=== PATIENT | female | born 1935 | race Caucasian/White ===

== ENCOUNTER 2017-04-25 09:25 | Inpatient (IN) | payer MEDICARE, OTHER ==
[~2017-04-25] VITALS: Ht 167.6 cm; Wt 55.0 kg
[~2017-04-25 09:25] MED LIST: AMOX-419 PO; ASPI-1264 PO; ATOR20TA66 PO; CARV3.1289 PO; DIGO125T97 PO; DIO160T PO; FLUT16SP2 BOTHNARES; FLUT16SP26 NS; FURO40TA4 PO; Hydrocodone Bit/Acetaminophen PO; INSU100I25 SQ; INSU100V11 SQ; LACTC PO; LEVO250T2 PO; LEVO25TA7 PO; LEVO500T89 PO; LEVO50TA8 PO; LORA10TA7 PO; LOSA100T3 PO; METR250T4 PO; ONDA4TAB12 PO; PAT0.1OS EACHEYE; ROSU10TA PO; SPIIN IH; SPIIN INH; TRAZ-143 PO; TRAZ-146 PO; VICODIN 5/500 PO; XAL0.005OS EACHEYE; ZOL50T PO
[2017-04-25] MEDS ORDERED: pantoprazole IV 80 MG in normal saline 100ml IV soln 100 ML IV ONE ×2 (10:20→10:30)
[2017-04-25] MEDS ORDERED: normal saline 1000ML IV soln IVB ONE (10:20)
[2017-04-25] MEDS ORDERED: pantoprazole IV 40 MG in normal saline 100ml IV soln 100 ML IV ONE (10:25)
[2017-04-25 11:09] LABS: BASOPHILS % (AUTO) 0.1 % (0-1); EOSINOPHILS # (AUTO) 0.4 X10'3 (0-0.9); HEMATOCRIT 32.5 % (35.0-45.0); HEMOGLOBIN 10.9 g/dl (12.0-16.0); LYMPHOCYTES # (AUTO) 0.4 X10'3 (1.1-4.8); LYMPHOCYTES % (AUTO) 2.2 % (21-51); MEAN CORPUSCULAR HGB CONC 33.5 % (33.0-36.5); MEAN CORPUSCULAR VOLUME 89.5 FL (78-98); MEAN PLATELET VOLUME 7.8 FL (7.4-10.4); MONOCYTES # (AUTO) 0.7 X10'3 (0-0.9); NEUTROPHILS # (AUTO) 16.6 X10'3 (1.8-7.7); NEUTROPHILS % (AUTO) 91.7 % (42-75); PLATELET COUNT 391 X10'3 (140-440); RED BLOOD COUNT 3.63 X10'6 (4.20-5.60); RED CELL DISTRIBUTION WIDTH 13.3 % (11.5-14.5)
[2017-04-25 11:17] LABS: PROTHROMBIN TIME 10.7 SECONDS (9.0-12.0)
[2017-04-25 11:24] LABS: ALANINE AMINOTRANSFERASE 18 U/L (12-78); ALBUMIN 2.6 G/DL (3.4-5.0); ALBUMIN/GLOBULIN RATIO 0.5 (1.1-1.5); ALKALINE PHOSPHATASE 89 IU/L (46-116); ANION GAP 4 (8-16); ASPARTATE AMINO TRANSFERASE 20 U/L (10-37); BILIRUBIN,TOTAL 0.3 MG/DL (0.1-1.0); BLOOD UREA NITROGEN 20 MG/DL (7-18); BUN/CREATININE RATIO 16.1 (6.6-38.0); CALCIUM 9.4 MG/DL (8.5-10.1); CHLORIDE 95 MMOL/L (99-107); CREATININE 1.24 MG/DL (0.40-0.90); GLUCOSE 144 MG/DL (70-104); POTASSIUM 4.6 MMOL/L (3.5-5.1); SODIUM 134 MMOL/L (135-145); TOTAL CARBON DIOXIDE 35.5 MMOL/L (24-32); TOTAL PROTEIN 7.5 G/DL (6.4-8.2); eGFR 41 ML/MIN
[2017-04-25 11:34] LABS: TOTAL CELLS COUNTED 100
[2017-04-25 11:35] LABS: PLATELET ESTIMATE NORMAL
[2017-04-25] MEDS ORDERED: azithromycin/NS 500mg/250ml 250 ML IV ONE (11:35)
[2017-04-25] MEDS ORDERED: CefTRIAXone 2gm/NS 100ml IVPB 100 ML IV ONE (11:35)
[2017-04-25 11:36] LABS: ANISOCYTOSIS FEW; TOXIC GRANULATION 2+; TOXIC VACUOLATION FEW
[2017-04-25] MEDS ORDERED: potassium Cl 20 mEq SR tablet PO PRN ×2 (12:20)
[2017-04-25] MEDS ORDERED: morphine sulfate 8 MG/ML SYRINGE IV PRN (12:20)
[2017-04-25] MEDS ORDERED: mag hydrox/Alum hydrox/simeth 30ml oral suspension PO PRN (12:20)
[2017-04-25] MEDS ORDERED: acetaminophen 325mg tablet PO PRN (12:20)
[2017-04-25] MEDS ORDERED: HYDROcodone/acetaminophen 5mg/325mg tablet PO PRN (12:20)
[2017-04-25] MEDS ORDERED: potassium Cl 40MEQ/NS 500ml 500 ML IV PRN ×2 (12:20)
[2017-04-25] MEDS ORDERED: bisacodyl 10mg suppository rectal RC PRN (12:20)
[2017-04-25] MEDS ORDERED: insulin Lispro (HumaLOG) vial - multi-dose SQ SCH (12:25)
[2017-04-25] MEDS ORDERED: glucagon, human recombinant 1mg kit SUBCUT PRN (12:25)
[2017-04-25] MEDS ORDERED: dextrose ORAL solution 15 GM/59 ML bottle PO PRN ×2 (12:25)
[2017-04-25] MEDS ORDERED: dextrose 50%-water 50ml dispensing syringe IV PRN ×2 (12:25)
[2017-04-25] MEDS ORDERED: MESSAGE TO PHARMACY PO ONE (12:25)
[2017-04-25 12:28] LABS: OCCULT BLOOD STOOL POSITIVE (Neg)
[2017-04-25] MEDS ORDERED: NUT.237L33 PO (12:28)
[2017-04-25] MEDS ORDERED: ROSU10TA PO (12:28)
[2017-04-25] MEDS ORDERED: ALBU8HFA PO (12:28)
[2017-04-25] MEDS ORDERED: ADV50250 IH (12:28)
[2017-04-25] MEDS ORDERED: LANTUS SQ (12:28)
[2017-04-25] MEDS ORDERED: LOSA50TA3 PO (12:28)
[2017-04-25] MEDS ORDERED: CYA500T PO (12:28)
[2017-04-25] MEDS ORDERED: OMEP40CA37 PO (12:28)
[2017-04-25] MEDS ORDERED: CHOL200026 PO (12:28)
[2017-04-25 12:50] LABS: HEMOGLOBIN A1C 5.9 % (4.5-6.2)
[2017-04-25] MEDS: ipratropium/albuterol 3ml nebule NEB SCH ×3 (13:30→23:48)
[2017-04-25] MEDS: ondansetron/PF 4mg/2ml inj IV PRN (13:44)
[2017-04-25] MEDS: normal saline 1000ml 1,000 ML IV SCH (14:21)
[2017-04-25] MEDS: levoFLOXACIN-Levaquin 750MG/D5 150 ML IV SCH (14:21)
[2017-04-25 14:52] LABS: CLARITY,URINE Clear (Clear); COLOR,URINE Yellow (Yellow); GLUCOSE, URINE Negative (Neg); KETONES,URINE Negative (Neg); LEUKOCYTE ESTERASE ,URINE Trace (Neg); NITRITES, URINE Negative (Neg); OCCULT BLOOD,URINE Negative (Neg); PH,URINE 6.5 (4.8-8.0); PROTEIN,URINE Negative (Neg); UROBILINOGEN,URINE 0.2 E.U/dL (0.2-1.0)
[2017-04-25 14:53] LABS: UA COLLECTION TYPE VOIDED
[2017-04-25 15:16] LABS: BACTERIA,URINE NONE SEEN /HPF (Neg); RBC,URINE NONE SEEN /HPF (0-2); SQUAMOUS EPITHELIAL CELL,UR FEW /LPF (FEW); WBC,URINE 0-4 /HPF (0-4)
[2017-04-25 15:42] VITALS: BP 123/69
[2017-04-25] MEDS: levoTHYROXINE 25mcg tablet PO SCH (16:02)
[2017-04-25] MEDS: clindamycin 600mg/D5W 50ml 50 ML IV SCH ×2 (16:05→20:43)
[2017-04-25 17:32] LABS: BASOPHILS % (AUTO) 0 % (0-1); EOSINOPHILS # (AUTO) 0.2 X10'3 (0-0.9); EOSINOPHILS % (AUTO) 1.5 % (0-6); HEMATOCRIT 31.6 % (35.0-45.0); HEMOGLOBIN 10.5 g/dl (12.0-16.0); LYMPHOCYTES # (AUTO) 0.4 X10'3 (1.1-4.8); LYMPHOCYTES % (AUTO) 2.9 % (21-51); MEAN CORPUSCULAR HEMOGLOBIN 29.7 PG (27.0-31.0); MEAN CORPUSCULAR HGB CONC 33.2 % (33.0-36.5); MEAN CORPUSCULAR VOLUME 89.7 FL (78-98); MEAN PLATELET VOLUME 7.6 FL (7.4-10.4); MONOCYTES # (AUTO) 0.9 X10'3 (0-0.9); MONOCYTES % (AUTO) 5.9 % (2-12); NEUTROPHILS # (AUTO) 13.3 X10'3 (1.8-7.7); NEUTROPHILS % (AUTO) 89.7 % (42-75); PLATELET COUNT 327 X10'3 (140-440); RED BLOOD COUNT 3.52 X10'6 (4.20-5.60); RED CELL DISTRIBUTION WIDTH 13.5 % (11.5-14.5); WHITE BLOOD COUNT 14.9 X10'3 (4.5-11.0)
[2017-04-25] MEDS: benzonatate 100mg capsule PO SCH ×2 (17:43→23:42)
[2017-04-25 20:00] VITALS: BP 130/61
[2017-04-25] MEDS: docusate sod 100mg capsule PO SCH (20:00)
[2017-04-25] MEDS: carVEDilol 3.125mg tablet PO SCH (20:41)
[2017-04-25] MEDS ORDERED: insulin glargine (Lantus) pen - multi-dose SQ SCH (21:00)
[2017-04-25] MEDS ORDERED: diatr meglu/diatrizoate 30ml oral sol.-(3 dose) bottle PO SCH (21:00)
[2017-04-25] MEDS: Insulin Detemir pen SQ SCH (21:00)
[2017-04-25 23:48] LABS: BASOPHILS % (AUTO) 0 % (0-1); EOSINOPHILS % (AUTO) 0.2 % (0-6); HEMATOCRIT 29.3 % (35.0-45.0); HEMOGLOBIN 9.7 g/dl (12.0-16.0); LYMPHOCYTES # (AUTO) 0.5 X10'3 (1.1-4.8); LYMPHOCYTES % (AUTO) 2.9 % (21-51); MEAN CORPUSCULAR HEMOGLOBIN 29.8 PG (27.0-31.0); MEAN CORPUSCULAR HGB CONC 33.2 % (33.0-36.5); MEAN CORPUSCULAR VOLUME 89.7 FL (78-98); MEAN PLATELET VOLUME 8.1 FL (7.4-10.4); MONOCYTES # (AUTO) 1.2 X10'3 (0-0.9); MONOCYTES % (AUTO) 7.8 % (2-12); NEUTROPHILS # (AUTO) 14.3 X10'3 (1.8-7.7); NEUTROPHILS % (AUTO) 89.1 % (42-75); PLATELET COUNT 316 X10'3 (140-440); RED BLOOD COUNT 3.27 X10'6 (4.20-5.60); RED CELL DISTRIBUTION WIDTH 13.1 % (11.5-14.5)
[2017-04-26] VITALS: BP 128/63
[2017-04-26] MEDS: ondansetron/PF 4mg/2ml inj IV PRN (00:40)
[2017-04-26] MEDS: normal saline 1000ml 1,000 ML IV SCH ×3 (00:48→21:31)
[2017-04-26] MEDS: clindamycin 600mg/D5W 50ml 50 ML IV SCH ×4 (02:14→20:13)
[2017-04-26] MEDS: ipratropium/albuterol 3ml nebule NEB SCH ×6 (03:34→23:32)
[2017-04-26] MEDS: levoTHYROXINE 25mcg tablet PO SCH (07:03)
[2017-04-26] MEDS: diatr meglu/diatrizoate 30ml oral sol.-(3 dose) bottle PO SCH ×2 (07:04→09:37)
[2017-04-26] MEDS: pantoprazole 40mg Tablet.DR PO SCH (07:04)
[2017-04-26 07:12] VITALS: BP 126/64
[2017-04-26] MEDS: vitamin D (cholecalciferol) 1,000 unit tablet PO SCH (07:21)
[2017-04-26] MEDS: losartan 50mg tablet PO SCH (07:21)
[2017-04-26] MEDS: carVEDilol 3.125mg tablet PO SCH ×2 (07:21→20:13)
[2017-04-26] MEDS: cyanocobalamin 500mcg tablet PO SCH (07:21)
[2017-04-26 07:34] LABS: BASOPHILS % (AUTO) 0 % (0-1); EOSINOPHILS % (AUTO) 0.2 % (0-6); HEMATOCRIT 31.6 % (35.0-45.0); HEMOGLOBIN 10.5 g/dl (12.0-16.0); LYMPHOCYTES # (AUTO) 0.5 X10'3 (1.1-4.8); LYMPHOCYTES % (AUTO) 3.4 % (21-51); MEAN CORPUSCULAR HEMOGLOBIN 29.7 PG (27.0-31.0); MEAN CORPUSCULAR HGB CONC 33.3 % (33.0-36.5); MEAN CORPUSCULAR VOLUME 89.2 FL (78-98); MEAN PLATELET VOLUME 8.1 FL (7.4-10.4); MONOCYTES # (AUTO) 1.2 X10'3 (0-0.9); MONOCYTES % (AUTO) 7.5 % (2-12); NEUTROPHILS # (AUTO) 14.3 X10'3 (1.8-7.7); NEUTROPHILS % (AUTO) 88.9 % (42-75); PLATELET COUNT 414 X10'3 (140-440); RED BLOOD COUNT 3.54 X10'6 (4.20-5.60); RED CELL DISTRIBUTION WIDTH 13.4 % (11.5-14.5); WHITE BLOOD COUNT 16.1 X10'3 (4.5-11.0)
[2017-04-26] MEDS: docusate sod 100mg capsule PO SCH ×2 (07:45→20:00)
[2017-04-26] MEDS: atorvastatin 20mg tablet PO SCH (07:45)
[2017-04-26] MEDS: K and/or MAG REPLACEMENT MC SCH (08:00)
[2017-04-26 08:10] LABS: ALANINE AMINOTRANSFERASE 19 U/L (12-78); ALBUMIN 2.4 G/DL (3.4-5.0); ALBUMIN/GLOBULIN RATIO 0.5 (1.1-1.5); ALKALINE PHOSPHATASE 96 IU/L (46-116); ANION GAP 6 (8-16); ASPARTATE AMINO TRANSFERASE 20 U/L (10-37); BILIRUBIN,TOTAL 0.7 MG/DL (0.1-1.0); BLOOD UREA NITROGEN 12 MG/DL (7-18); BUN/CREATININE RATIO 10.8 (6.6-38.0); CALCIUM 9.3 MG/DL (8.5-10.1); CHLORIDE 100 MMOL/L (99-107); CREATININE 1.11 MG/DL (0.40-0.90); GLUCOSE 133 MG/DL (70-104); MAGNESIUM 1.4 MG/DL (1.5-2.4); POTASSIUM 4.4 MMOL/L (3.5-5.1); SODIUM 137 MMOL/L (135-145); TOTAL CARBON DIOXIDE 31.5 MMOL/L (24-32); TOTAL PROTEIN 6.9 G/DL (6.4-8.2); eGFR 47 ML/MIN
[2017-04-26] MEDS ORDERED: LORazepam 2 mg/ml vial IV ONE ×2 (08:10→09:40)
[2017-04-26] MEDS: levoFLOXACIN-Levaquin 750MG/D5 150 ML IV SCH (10:14)
[2017-04-26] MEDS: benzonatate 100mg capsule PO SCH ×3 (10:14→23:35)
[2017-04-26 12:00] VITALS: BP 100/50
[2017-04-26] MEDS: lactobacillus rhamnosus 10,000 MMU CELLS/CAPSULE PO SCH (17:28)
[2017-04-26 18:00] VITALS: BP 128/69
[2017-04-26] MEDS: NUT.TX.GLUC.INTOLER,LAC-FR,REG (BOOST GLUCOSE CONTROL) 237 ML PO SCH (18:00)
[2017-04-26] MEDS: Insulin Detemir pen SQ SCH (21:00)
[2017-04-27] VITALS: BP 134/69
[2017-04-27] MEDS: clindamycin 600mg/D5W 50ml 50 ML IV SCH ×3 (01:56→13:34)
[2017-04-27] MEDS: ipratropium/albuterol 3ml nebule NEB SCH ×2 (03:33→10:55)
[2017-04-27 06:11] LABS: BASOPHILS # (AUTO) 0.1 X10'3 (0-0.2); BASOPHILS % (AUTO) 0.5 % (0-1); EOSINOPHILS # (AUTO) 0.3 X10'3 (0-0.9); EOSINOPHILS % (AUTO) 2.7 % (0-6); HEMATOCRIT 28.9 % (35.0-45.0); HEMOGLOBIN 9.6 g/dl (12.0-16.0); LYMPHOCYTES # (AUTO) 0.6 X10'3 (1.1-4.8); LYMPHOCYTES % (AUTO) 5.3 % (21-51); MEAN CORPUSCULAR HEMOGLOBIN 29.9 PG (27.0-31.0); MEAN CORPUSCULAR HGB CONC 33.5 % (33.0-36.5); MEAN CORPUSCULAR VOLUME 89.3 FL (78-98); MEAN PLATELET VOLUME 7.4 FL (7.4-10.4); MONOCYTES # (AUTO) 0.9 X10'3 (0-0.9); MONOCYTES % (AUTO) 8.3 % (2-12); NEUTROPHILS # (AUTO) 9.2 X10'3 (1.8-7.7); NEUTROPHILS % (AUTO) 83.2 % (42-75); PLATELET COUNT 333 X10'3 (140-440); RED BLOOD COUNT 3.23 X10'6 (4.20-5.60); RED CELL DISTRIBUTION WIDTH 13.5 % (11.5-14.5)
[2017-04-27 06:30] VITALS: BP 137/64
[2017-04-27 06:32] LABS: ALANINE AMINOTRANSFERASE 17 U/L (12-78); ALBUMIN 2.1 G/DL (3.4-5.0); ALBUMIN/GLOBULIN RATIO 0.5 (1.1-1.5); ALKALINE PHOSPHATASE 75 IU/L (46-116); ANION GAP 4 (8-16); ASPARTATE AMINO TRANSFERASE 23 U/L (10-37); BILIRUBIN,TOTAL 0.2 MG/DL (0.1-1.0); BLOOD UREA NITROGEN 14 MG/DL (7-18); BUN/CREATININE RATIO 13.9 (6.6-38.0); CALCIUM 8.8 MG/DL (8.5-10.1); CHLORIDE 100 MMOL/L (99-107); CREATININE 1.01 MG/DL (0.40-0.90); GLUCOSE 121 MG/DL (70-104); MAGNESIUM 1.4 MG/DL (1.5-2.4); POTASSIUM 4.5 MMOL/L (3.5-5.1); SODIUM 135 MMOL/L (135-145); TOTAL CARBON DIOXIDE 31.4 MMOL/L (24-32); TOTAL PROTEIN 6.1 G/DL (6.4-8.2); eGFR 52 ML/MIN
[2017-04-27] MEDS: lactobacillus rhamnosus 10,000 MMU CELLS/CAPSULE PO SCH (07:31)
[2017-04-27] MEDS: losartan 50mg tablet PO SCH (07:31)
[2017-04-27] MEDS: levoTHYROXINE 25mcg tablet PO SCH (07:31)
[2017-04-27] MEDS: carVEDilol 3.125mg tablet PO SCH (07:32)
[2017-04-27] MEDS: pantoprazole 40mg Tablet.DR PO SCH (07:32)
[2017-04-27] MEDS: docusate sod 100mg capsule PO SCH (07:32)
[2017-04-27] MEDS: vitamin D (cholecalciferol) 1,000 unit tablet PO SCH (07:32)
[2017-04-27] MEDS: atorvastatin 20mg tablet PO SCH (07:32)
[2017-04-27] MEDS: cyanocobalamin 500mcg tablet PO SCH (07:32)
[2017-04-27] MEDS: NUT.TX.GLUC.INTOLER,LAC-FR,REG (BOOST GLUCOSE CONTROL) 237 ML PO SCH ×2 (07:38→13:34)
[2017-04-27] MEDS: K and/or MAG REPLACEMENT MC SCH (07:38)
[2017-04-27] MEDS ORDERED: magnesium Cl slow-release 64mg tablet PO PRN (07:40)
[2017-04-27] MEDS ORDERED: magnesium 2GM in 50ml NS 50 ML IV PRN (07:40)
[2017-04-27] MEDS ORDERED: magnesium 4gm in 100ml NS 100 ML IV PRN (07:40)
[2017-04-27] MEDS: benzonatate 100mg capsule PO SCH (07:43)
[2017-04-27] MEDS: levoFLOXACIN-Levaquin 750MG/D5 150 ML IV SCH (07:43)
[2017-04-27] MEDS: normal saline 1000ml 1,000 ML IV SCH (09:41)
[2017-04-27 12:14] VITALS: BP 138/74
[2017-04-27] MEDS: ondansetron/PF 4mg/2ml inj IV PRN (13:34)
[2017-04-27] MEDS ORDERED: LEVO750T46 PO (14:50)
[2017-04-29] MEDS ORDERED: levoFLOXACIN 750MG TABLET PO SCH (08:00)
== END 2017-04-27 15:20 | disposition home or self-care (01) | DRG 871 ==
LOC: ER 09:25 → ED HOLD 12:18 → MED 3N 15:32
PROVIDERS: ADMIT Internal Medicine; ATTEND Internal Medicine
DX: A41.9 Sepsis, unspecified organism (principal); J18.9 Pneumonia, unspecified organism; J96.21 Acute and chronic respiratory failure with hypoxia; K56.699 Other intestinal obstruction unspecified as to partial versus complete obstruction; K92.2 Gastrointestinal hemorrhage, unspecified; J44.0 Chronic obstructive pulmonary disease with (acute) lower respiratory infection; Z99.81 Dependence on supplemental oxygen; D64.9 Anemia, unspecified; I51.81 Takotsubo syndrome; E11.9 Type 2 diabetes mellitus without complications; N28.9 Disorder of kidney and ureter, unspecified; E86.0 Dehydration; E03.9 Hypothyroidism, unspecified; F40.240 Claustrophobia; K59.09 Other constipation; Z90.49 Acquired absence of other specified parts of digestive tract; Z88.5 Allergy status to narcotic agent; Z88.8 Allergy status to other drugs, medicaments and biological substances; Z87.891 Personal history of nicotine dependence
CPT/HCPCS: 36415; 71010; 74020; 74176; 80053; 81001; 82272; 82948; 83036; 83605; 83735; 85025; 85610; 86885; 86900; 86901; 87040; 87070; 87088; 93005; 94640; 94760; 97116; 97162; 99285; C9113; J0456; J0696; J1956; J2060; J2405; J3490; J7030; Q9963

== ENCOUNTER 2017-08-14 13:21 | Outpatient (CLI) | payer MEDICARE, OTHER ==
[~2017-08-14 13:21] MED LIST changes: +ADV50250 IH; +ALBU8HFA PO; -AMOX-419 PO; -ASPI-1264 PO; -ATOR20TA66 PO; +CHOL200026 PO; +CYA500T PO; -DIGO125T97 PO; -DIO160T PO; -FLUT16SP2 BOTHNARES; -FLUT16SP26 NS; -FURO40TA4 PO; -Hydrocodone Bit/Acetaminophen PO; -INSU100I25 SQ; -INSU100V11 SQ; -LACTC PO; +LANTUS SQ; -LEVO250T2 PO; -LEVO25TA7 PO; -LEVO500T89 PO; +LEVO750T46 PO; -LORA10TA7 PO; -LOSA100T3 PO; +LOSA50TA3 PO; -METR250T4 PO; +NUT.237L33 PO; +OMEP40CA37 PO; -PAT0.1OS EACHEYE; -SPIIN IH; -TRAZ-143 PO; -TRAZ-146 PO; -VICODIN 5/500 PO; -XAL0.005OS EACHEYE; -ZOL50T PO
[2017-08-14] MEDS ORDERED: ADV50500 INH (15:07)
[2017-08-14] MEDS ORDERED: ALBU0.63 NEB (15:07)
[2017-08-14] MEDS ORDERED: XAL0.005OS OP (15:08)
== END 2017-08-14 23:59 | disposition home or self-care (01) ==
LOC: PRE-OP 13:21 → EDSTATUS 13:30 → PRE-OP 23:59 → EDSTATUS 08-15 13:30
PROVIDERS: ATTEND Surgery
DX: Z01.818 Encounter for other preprocedural examination (principal); K63.89 Other specified diseases of intestine; J44.9 Chronic obstructive pulmonary disease, unspecified; E11.9 Type 2 diabetes mellitus without complications; E55.9 Vitamin D deficiency, unspecified; I25.10 Atherosclerotic heart disease of native coronary artery without angina pectoris; E78.5 Hyperlipidemia, unspecified; E03.9 Hypothyroidism, unspecified; I13.0 Hypertensive heart and chronic kidney disease with heart failure and stage 1 through stage 4 chronic kidney disease, or unspecified chronic kidney disease; N18.1 Chronic kidney disease, stage 1
CPT/HCPCS: 71046

== ENCOUNTER 2017-08-21 09:03 | Outpatient (CLI) | payer MEDICARE, OTHER ==
[2017-08-21] VITALS (8 sets, daily range): BP systolic 134–142; BP diastolic 52–63
[~2017-08-21] VITALS: Ht 167.6 cm; Wt 68.0 kg
[~2017-08-21 09:03] MED LIST changes: -ADV50250 IH; +ADV50500 INH; +ALBU0.63 NEB; -ALBU8HFA PO; -CHOL200026 PO; -LEVO750T46 PO; -LOSA50TA3 PO; -NUT.237L33 PO; -OMEP40CA37 PO; -ONDA4TAB12 PO; -SPIIN INH; +XAL0.005OS OP
[2017-08-21] MEDS ORDERED: regadenoson 0.4mg/5ml syringe IV ONE ×3 (10:10→10:38)
[2017-08-21] MEDS ORDERED: normal saline 500ml IV soln 500 ML IV ONE (10:30)
[2017-08-21] MEDS ORDERED: nitroGLYCERIN 0.4mg SUBLingual tab SL PRN (10:30)
[2017-08-21] MEDS ORDERED: aminophylline 250mg/10ml inj. IV PRN (10:30)
[2017-08-21] MEDS ORDERED: aminophylline inj. 10 ML IV ONE (10:38)
== END 2017-08-21 23:59 | disposition home or self-care (01) ==
LOC: RAD 09:03
PROVIDERS: ATTEND Internal Medicine Cardiovascular Disease
DX: I11.0 Hypertensive heart disease with heart failure (principal); I50.9 Heart failure, unspecified; I25.10 Atherosclerotic heart disease of native coronary artery without angina pectoris; J45.909 Unspecified asthma, uncomplicated; E11.9 Type 2 diabetes mellitus without complications; Z87.891 Personal history of nicotine dependence; Z88.1 Allergy status to other antibiotic agents; Z88.8 Allergy status to other drugs, medicaments and biological substances
CPT/HCPCS: 78452; 93017; A9500; J0280; J7030

== ENCOUNTER 2017-09-26 13:53 | Inpatient (IN) | payer MEDICARE, OTHER ==
[~2017-09-26] VITALS: Ht 167.6 cm; Wt 47.3 kg
[~2017-09-26 13:53] MED LIST changes: +ALBU18HF2; +CHOL4PAC4; +LOSA100T28; +NITR0.4T48; +OMEP-50; +SERT100T10; +TRAZ150T78 PO
[2017-09-26] MEDS ORDERED: ipratropium/albuterol 3ml nebule NEB ONE (14:00)
[2017-09-26] MEDS ORDERED: methylPREDNISolone sod succ 125mg/2ml vial IV ONE (14:00)
[2017-09-26] MEDS ORDERED: albuterol 2.5 MG/3 ML nebule NEB ONE ×2 (14:00→16:35)
[2017-09-26 14:35] LABS: BASOPHILS % (AUTO) 0 % (0-1); EOSINOPHILS # (AUTO) 0.1 X10'3 (0-0.9); EOSINOPHILS % (AUTO) 0.3 % (0-6); HEMATOCRIT 35.2 % (35.0-45.0); HEMOGLOBIN 11.8 g/dl (12.0-16.0); LYMPHOCYTES # (AUTO) 0.7 X10'3 (1.1-4.8); LYMPHOCYTES % (AUTO) 2.6 % (21-51); MEAN CORPUSCULAR HEMOGLOBIN 28.9 PG (27.0-31.0); MEAN CORPUSCULAR HGB CONC 33.4 % (33.0-36.5); MEAN CORPUSCULAR VOLUME 86.6 FL (78-98); MEAN PLATELET VOLUME 8.9 FL (7.4-10.4); MONOCYTES # (AUTO) 0.9 X10'3 (0-0.9); MONOCYTES % (AUTO) 3.6 % (2-12); NEUTROPHILS # (AUTO) 23.9 X10'3 (1.8-7.7); NEUTROPHILS % (AUTO) 93.5 % (42-75); PLATELET COUNT 114 X10'3 (140-440); RED BLOOD COUNT 4.07 X10'6 (4.20-5.60)
[2017-09-26 14:39] LABS: INR 1.1 INR; PARTIAL THROMBOPLASTIN TIME 30 SECONDS (22-32); PROTHROMBIN TIME 11.4 SECONDS (9.0-12.0); WHITE BLOOD COUNT 25.6 X10'3 (4.5-11.0)
[2017-09-26 14:51] LABS: ALANINE AMINOTRANSFERASE 16 U/L (12-78); ALBUMIN 2.1 G/DL (3.4-5.0); ALBUMIN/GLOBULIN RATIO 0.3 (1.1-1.5); ALKALINE PHOSPHATASE 148 IU/L (46-116); ANION GAP 10 (8-16); ASPARTATE AMINO TRANSFERASE 26 U/L (10-37); BILIRUBIN,TOTAL 0.3 MG/DL (0.1-1.0); BLOOD UREA NITROGEN 56 MG/DL (7-18); BUN/CREATININE RATIO 20.4 (6.6-38.0); CALCIUM 9.1 MG/DL (8.5-10.1); CHLORIDE 98 MMOL/L (99-107); CREATININE 2.74 MG/DL (0.40-0.90); GLUCOSE 134 MG/DL (70-104); SODIUM 134 MMOL/L (135-145); TOTAL CARBON DIOXIDE 25.8 MMOL/L (24-32); TOTAL PROTEIN 8.6 G/DL (6.4-8.2); eGFR 17 ML/MIN
[2017-09-26 14:52] LABS: TOTAL CELLS COUNTED 100
[2017-09-26 14:53] LABS: ANISOCYTOSIS 1+; PLATELET ESTIMATE DECREASED; POTASSIUM 6.9 MMOL/L (3.5-5.1)
[2017-09-26] MEDS ORDERED: calcium chloride 100 MG/1 ML inj IV ONE ×3 (14:55→18:10)
[2017-09-26] MEDS ORDERED: sodium polystyrene sulfonate 15gm/60ml oral suspension PO ONE ×2 (14:55→16:35)
[2017-09-26] MEDS ORDERED: insulin regular, human 10 units/0.1 ml syringe IV ONE ×2 (14:55→16:35)
[2017-09-26] MEDS ORDERED: dextrose 50%-water 50ml dispensing syringe IV ONE ×2 (14:55→16:35)
[2017-09-26] MEDS: normal saline 1000ML IV soln IV ONE ×2 (15:02→15:18)
[2017-09-26] MEDS ORDERED: HEPA500015 SQ (15:10)
[2017-09-26] MEDS ORDERED: VITA1CAP PO (15:10)
[2017-09-26] MEDS ORDERED: PROC5TAB56 PO (15:10)
[2017-09-26] MEDS ORDERED: ALBU0.63 IH (15:10)
[2017-09-26] MEDS ORDERED: FLUT1BLS3 INH (15:10)
[2017-09-26] MEDS ORDERED: DOCU-148 PO (15:10)
[2017-09-26] MEDS ORDERED: CefTRIAXone/D5W-Rocephin 1gm 50 ML IV ONE (15:30)
[2017-09-26] MEDS ORDERED: albuterol 2.5 MG/3 ML nebule NEB PRN (16:10)
[2017-09-26] MEDS ORDERED: morphine 4 MG/ML inj SYRINge IV PRN (16:25)
[2017-09-26] MEDS ORDERED: magnesium hydroxide 30ml (MOM) UD suspension PO PRN (16:25)
[2017-09-26] MEDS ORDERED: metoclopramide 5 mg/ml inj IV PRN (16:25)
[2017-09-26] MEDS ORDERED: HYDROmorphone inj. 0.5 MG/0.5 ML DISP.SYRIN IV PRN ×2 (16:25)
[2017-09-26] MEDS ORDERED: diphenhydrAMINE 50 mg/ml inj IV PRN (16:25)
[2017-09-26] MEDS ORDERED: diphenhydrAMINE 25mg capsule PO PRN (16:25)
[2017-09-26] MEDS ORDERED: mag hydrox/Alum hydrox/simeth 30ml oral suspension PO PRN (16:25)
[2017-09-26] MEDS ORDERED: bisacodyl 10mg suppository rectal RC PRN (16:25)
[2017-09-26] MEDS ORDERED: dextrose 50%-water 50ml dispensing syringe IV PRN ×2 (16:30)
[2017-09-26] MEDS ORDERED: glucagon, human recombinant 1mg kit SUBCUT PRN (16:30)
[2017-09-26] MEDS ORDERED: dextrose ORAL solution 15 GM/59 ML bottle PO PRN ×2 (16:30)
[2017-09-26] MEDS ORDERED: MESSAGE TO PHARMACY PO ONE (16:30)
[2017-09-26] MEDS ORDERED: sodium bicarbonate (8.4%) 1 mEq/ml syringe IV ONE (16:35)
[2017-09-26 16:36] LABS: ABG BASE EXCESS -6.3 mmol/L (-2.0-3.0); ABG HCO3 20.4 mmol/L (22.0-26.0); ABG OXYGEN SATURATION 92.9 % (95-98); ABG PCO2 (T) 45.5 mmHg (32.0-45.0); ABG PO2 (T) 72.3 mmHg (83-108); ALLEN'S TEST Positive; FCOHb 0.6 % (0.5-1.5); FLOW 36 L/min; FMetHb 0.3 % (0.3-1.12); FO2Hb 92.1 % (94-100); TOTAL HEMOGLOBIN 11.8 G/dl (12.0-16.0)
[2017-09-26] MEDS: proCHLORperazine 5mg tablet PO SCH (17:00)
[2017-09-26] MEDS ORDERED: MULT-685 PO (17:07)
[2017-09-26] MEDS ORDERED: POLY17PO10 PO (17:07)
[2017-09-26] MEDS ORDERED: CHOL4PAC19 PO (17:07)
[2017-09-26] MEDS ORDERED: IBUP200C74 PO (17:07)
[2017-09-26] MEDS ORDERED: [UNRECOGNIZED DRUG - OTHER] PO (17:07)
[2017-09-26] MEDS ORDERED: ATR0.5NEB NEB (17:07)
[2017-09-26] MEDS ORDERED: FURO-150 PO (17:07)
[2017-09-26] MEDS ORDERED: TRAM50TA2 PO (17:07)
[2017-09-26] MEDS ORDERED: PRAV80TA3 PO (17:07)
[2017-09-26] MEDS ORDERED: INSU100I8 SQ (17:07)
[2017-09-26] MEDS ORDERED: NYST1000 PO (17:07)
[2017-09-26] MEDS ORDERED: ONDA8TAB9 PO (17:07)
[2017-09-26 17:17] LABS: C-REACTIVE PROTEIN 7.88 MG/DL (0.0-0.5); CREATINE KINASE 17 U/L (26-192); LIPASE 293 U/L (73-393); MAGNESIUM 2.3 MG/DL (1.5-2.4); PHOSPHORUS 5.3 MG/DL (2.3-4.5)
[2017-09-26 17:54] LABS: ALANINE AMINOTRANSFERASE 15 U/L (12-78); ALBUMIN 2.1 G/DL (3.4-5.0); ALBUMIN/GLOBULIN RATIO 0.3 (1.1-1.5); ALKALINE PHOSPHATASE 148 IU/L (46-116); ANION GAP 10 (8-16); ASPARTATE AMINO TRANSFERASE 23 U/L (10-37); BILIRUBIN,TOTAL 0.2 MG/DL (0.1-1.0); BLOOD UREA NITROGEN 54 MG/DL (7-18); BUN/CREATININE RATIO 19.4 (6.6-38.0); CALCIUM 10.3 MG/DL (8.5-10.1); CHLORIDE 98 MMOL/L (99-107); CREATININE 2.78 MG/DL (0.40-0.90); GLUCOSE 130 MG/DL (70-104); POTASSIUM 5.8 MMOL/L (3.5-5.1); SODIUM 132 MMOL/L (135-145); TOTAL CARBON DIOXIDE 24.1 MMOL/L (24-32); TOTAL PROTEIN 8.5 G/DL (6.4-8.2); eGFR 16 ML/MIN
[2017-09-26] MEDS: normal saline 1000ml 1,000 ML IV SCH (18:28)
[2017-09-26] MEDS: furosemide 40mg/4ml inj IV SCH (20:55)
[2017-09-26] MEDS: carVEDilol 3.125mg tablet PO SCH (21:00)
[2017-09-26] MEDS: docusate sod 100mg capsule PO SCH (21:00)
[2017-09-26] MEDS ORDERED: temazepam 15mg capsule PO PRN (21:00)
[2017-09-26] MEDS: methylPREDNISolone sod succ 125mg/2ml vial IV SCH (21:01)
[2017-09-26] MEDS: heparin, porcine 5000 units/ml vial SQ SCH (21:02)
[2017-09-26 21:30] VITALS: BP 113/47
[2017-09-26 23:00] VITALS: BP 117/45
[2017-09-26] MEDS: morphine 4 MG/ML inj SYRINge IV PRN (23:58)
[2017-09-27] VITALS (10 sets, daily range): BP systolic 91–113; BP diastolic 33–88
[2017-09-27 02:25] LABS: BASOPHILS % (AUTO) 0 % (0-1); EOSINOPHILS # (AUTO) 0.3 X10'3 (0-0.9); EOSINOPHILS % (AUTO) 1.1 % (0-6); HEMATOCRIT 42.2 % (35.0-45.0); LYMPHOCYTES # (AUTO) 0.7 X10'3 (1.1-4.8); LYMPHOCYTES % (AUTO) 2.4 % (21-51); MEAN CORPUSCULAR HGB CONC 33.1 % (33.0-36.5); MEAN CORPUSCULAR VOLUME 87.6 FL (78-98); MEAN PLATELET VOLUME 9.3 FL (7.4-10.4); MONOCYTES # (AUTO) 0.6 X10'3 (0-0.9); NEUTROPHILS # (AUTO) 29.1 X10'3 (1.8-7.7); NEUTROPHILS % (AUTO) 94.5 % (42-75); PLATELET COUNT 108 X10'3 (140-440); RED BLOOD COUNT 4.82 X10'6 (4.20-5.60); RED CELL DISTRIBUTION WIDTH 16.2 % (11.5-14.5)
[2017-09-27 02:34] LABS: WHITE BLOOD COUNT 30.8 X10'3 (4.5-11.0)
[2017-09-27 02:37] LABS: ALANINE AMINOTRANSFERASE 17 U/L (12-78); ALBUMIN 2.5 G/DL (3.4-5.0); ALBUMIN/GLOBULIN RATIO 0.3 (1.1-1.5); ALKALINE PHOSPHATASE 176 IU/L (46-116); ANION GAP 12 (8-16); ASPARTATE AMINO TRANSFERASE 27 U/L (10-37); BILIRUBIN,TOTAL 0.2 MG/DL (0.1-1.0); BLOOD UREA NITROGEN 56 MG/DL (7-18); BUN/CREATININE RATIO 18.1 (6.6-38.0); CALCIUM 11.3 MG/DL (8.5-10.1); CHLORIDE 99 MMOL/L (99-107); CREATININE 3.09 MG/DL (0.40-0.90); GLUCOSE 227 MG/DL (70-104); POTASSIUM 5.5 MMOL/L (3.5-5.1); SODIUM 137 MMOL/L (135-145); TOTAL PROTEIN 10.1 G/DL (6.4-8.2); eGFR 14 ML/MIN
[2017-09-27 02:49] LABS: PLATELET ESTIMATE DECREASED; TOTAL CELLS COUNTED 100
[2017-09-27 02:50] LABS: ANISOCYTOSIS 1+
[2017-09-27] MEDS: ondansetron/PF 4mg/2ml inj IV PRN ×2 (03:52→21:04)
[2017-09-27] MEDS: normal saline 1000ml 1,000 ML IV SCH ×3 (04:00→21:19)
[2017-09-27] MEDS ORDERED: carVEDilol 3.125mg tablet PO ONE (04:45)
[2017-09-27] MEDS: morphine 4 MG/ML inj SYRINge IV PRN ×5 (05:39→23:56)
[2017-09-27] MEDS: azithromycin/NS 500mg/250ml 250 ML IV SCH (07:16)
[2017-09-27] MEDS: CefTRIAXone/D5W-Rocephin 1gm 50 ML IV SCH (07:16)
[2017-09-27] MEDS: carVEDilol 3.125mg tablet PO SCH ×2 (07:18→20:00)
[2017-09-27] MEDS: cyanocobalamin 500mcg tablet PO SCH (07:18)
[2017-09-27] MEDS: furosemide 40mg/4ml inj IV SCH ×2 (07:18→20:00)
[2017-09-27] MEDS: atorvastatin 20mg tablet PO SCH (07:18)
[2017-09-27] MEDS: pantoprazole 40mg Tablet.DR PO SCH (07:18)
[2017-09-27] MEDS: docusate sod 100mg capsule PO SCH ×2 (07:18→21:04)
[2017-09-27] MEDS: proCHLORperazine 5mg tablet PO SCH ×3 (07:18→19:00)
[2017-09-27] MEDS: methylPREDNISolone sod succ 125mg/2ml vial IV SCH ×2 (07:18→21:03)
[2017-09-27] MEDS: levoTHYROXINE 25mcg tablet PO SCH (07:18)
[2017-09-27] MEDS: heparin, porcine 5000 units/ml vial SQ SCH ×2 (07:32→20:00)
[2017-09-27] MEDS: insulin Lispro (HumaLOG) vial - multi-dose SQ SCH ×3 (08:51→21:17)
[2017-09-27] MEDS ORDERED: sodium polystyrene sulfonate 15gm/60ml oral suspension PO ONE (11:00)
[2017-09-27] MEDS ORDERED: HYDROmorphone 1 mg/ml syringe IV PRN ×2 (12:35→12:36)
[2017-09-27] MEDS: NUT.TX.GLUC.INTOLER,LAC-FR,REG (BOOST GLUCOSE CONTROL) 237 ML PO SCH ×2 (13:58→18:00)
[2017-09-27] MEDS ORDERED: midazolam 2 mg/2 ml injection IV PRN (15:00)
[2017-09-27] MEDS ORDERED: LIDOcaine 1%/PF (10mg/ml) 5ml vial SQ ONE (15:00)
[2017-09-27] MEDS ORDERED: heparin 1,000 UNITS/NS 500ml 500 ML ICATH ONE (15:00)
[2017-09-27] MEDS ORDERED: fentaNYL/PF 50MCG/1 ML 2ML syringe IV PRN (15:00)
[2017-09-27] MEDS ORDERED: midazolam 2 mg/2 ml injection ONE (15:04)
[2017-09-27] MEDS ORDERED: fentaNYL/PF 50MCG/1 ML 2ML syringe ONE (15:04)
[2017-09-27] MEDS ORDERED: LIDOcaine 0.5% (5mg/ml) 50ml vial ONE (15:05)
[2017-09-27] MEDS ORDERED: heparin 1,000 UNITS/NS 500ml 500 ML ONE (15:05)
[2017-09-27] MEDS ORDERED: iohexol 300mg/ml 100ml inj. ONE ×2 (15:05→15:06)
[2017-09-27] MEDS ORDERED: tPA-cathflo 2 MG/2 ml IV flush ONE (16:06)
[2017-09-27] MEDS ORDERED: tPA-cathflo 2 MG/2 ml IV flush IVF ONE (16:15)
[2017-09-27 17:25] LABS: CLARITY,URINE CLOUDY (Clear); COLOR,URINE YELLOW (Yellow); GLUCOSE, URINE NEGATIVE (Neg); KETONES,URINE NEGATIVE (Neg); LEUKOCYTE ESTERASE ,URINE LARGE (Neg); NITRITES, URINE NEGATIVE (Neg); OCCULT BLOOD,URINE LARGE (Neg); PH,URINE 5.5 (4.8-8.0); PROTEIN,URINE 30 mg/dl (Neg); UROBILINOGEN,URINE 0.2 E.U/dL (0.2-1.0)
[2017-09-27 17:26] LABS: UA COLLECTION TYPE FOLEY CATH
[2017-09-27 17:39] LABS: BACTERIA,URINE 2+ /HPF (Neg); WBC,URINE TNTC /HPF (0-4)
[2017-09-27 17:41] LABS: YEAST MANY /HPF (NEGATIVE)
[2017-09-27 17:42] LABS: RBC,URINE 0-2 /HPF (0-2); SQUAMOUS EPITHELIAL CELL,UR NONE SEEN /LPF (FEW)
[2017-09-27] MEDS ORDERED: traZODone 50mg tablet PO SCH (21:00)
[2017-09-27] MEDS: lactobacillus rhamnosus 10,000 MMU CELLS/CAPSULE PO SCH (21:04)
[2017-09-27 22:01] LABS: HEMATOCRIT 35.8 % (35.0-45.0); HEMOGLOBIN 12.1 g/dl (12.0-16.0); MEAN CORPUSCULAR HEMOGLOBIN 29.2 PG (27.0-31.0); MEAN CORPUSCULAR HGB CONC 33.8 % (33.0-36.5); MEAN CORPUSCULAR VOLUME 86.3 FL (78-98); MEAN PLATELET VOLUME 9.2 FL (7.4-10.4); PLATELET COUNT 66 X10'3 (140-440); RED BLOOD COUNT 4.14 X10'6 (4.20-5.60); RED CELL DISTRIBUTION WIDTH 16.1 % (11.5-14.5)
[2017-09-27] MEDS: NORMAL SALINE ICATH SCH (22:01)
[2017-09-27] MEDS: FLUSH 6 MG ICATH SCH (22:01)
[2017-09-27] MEDS: TPA CATHFLO ICATH SCH (22:01)
[2017-09-27 22:22] LABS: WHITE BLOOD COUNT 37.3 X10'3 (4.5-11.0)
[2017-09-27] MEDS ORDERED: morphine 4 MG/ML inj SYRINge IV PRN (23:55)
[2017-09-28] VITALS (47 sets, daily range): BP systolic 60–121; BP diastolic 21–55
[2017-09-28] MEDS ORDERED: normal saline 500ml IV soln 500 ML IV ONE (00:45)
[2017-09-28] MEDS ORDERED: piperacillin/tazo 3.375gm/50ml 50 ML IV SCH (02:00)
[2017-09-28] MEDS: piperacillin/tazobactam inj. 2.25 GM in normal saline 50ml IV IV SCH ×2 (02:45→10:22)
[2017-09-28] MEDS: ondansetron/PF 4mg/2ml inj IV PRN (02:46)
[2017-09-28] MEDS: morphine 4 MG/ML inj SYRINge IV PRN ×3 (02:46→16:51)
[2017-09-28 05:27] LABS: BASOPHILS % (AUTO) 0 % (0-1); EOSINOPHILS % (AUTO) 0 % (0-6); HEMATOCRIT 33.3 % (35.0-45.0); HEMOGLOBIN 10.9 g/dl (12.0-16.0); LYMPHOCYTES # (AUTO) 0.6 X10'3 (1.1-4.8); LYMPHOCYTES % (AUTO) 1.6 % (21-51); MEAN CORPUSCULAR HEMOGLOBIN 28.8 PG (27.0-31.0); MEAN CORPUSCULAR HGB CONC 32.8 % (33.0-36.5); MEAN CORPUSCULAR VOLUME 87.9 FL (78-98); MEAN PLATELET VOLUME 8.8 FL (7.4-10.4); MONOCYTES % (AUTO) 2.7 % (2-12); NEUTROPHILS # (AUTO) 34.8 X10'3 (1.8-7.7); NEUTROPHILS % (AUTO) 95.7 % (42-75); PLATELET COUNT 55 X10'3 (140-440); RED BLOOD COUNT 3.78 X10'6 (4.20-5.60); RED CELL DISTRIBUTION WIDTH 16.2 % (11.5-14.5)
[2017-09-28 05:34] LABS: WHITE BLOOD COUNT 36.4 X10'3 (4.5-11.0)
[2017-09-28 06:01] LABS: ALANINE AMINOTRANSFERASE 13 U/L (12-78); ALBUMIN 1.7 G/DL (3.4-5.0); ALBUMIN/GLOBULIN RATIO 0.3 (1.1-1.5); ALKALINE PHOSPHATASE 155 IU/L (46-116); ANION GAP 13 (8-16); ASPARTATE AMINO TRANSFERASE 31 U/L (10-37); BILIRUBIN,TOTAL 0.1 MG/DL (0.1-1.0); BLOOD UREA NITROGEN 63 MG/DL (7-18); BUN/CREATININE RATIO 17.2 (6.6-38.0); CALCIUM 7.6 MG/DL (8.5-10.1); CHLORIDE 109 MMOL/L (99-107); CREATININE 3.67 MG/DL (0.40-0.90); GLUCOSE 162 MG/DL (70-104); POTASSIUM 5.6 MMOL/L (3.5-5.1); SODIUM 144 MMOL/L (135-145); TOTAL CARBON DIOXIDE 22.1 MMOL/L (24-32); TOTAL PROTEIN 7.1 G/DL (6.4-8.2); eGFR 12 ML/MIN
[2017-09-28 06:12] LABS: ANISOCYTOSIS 1+; PLATELET ESTIMATE DECREASED; TOTAL CELLS COUNTED 100
[2017-09-28 06:13] LABS: LARGE PLATELETS FEW; TOXIC GRANULATION 1+
[2017-09-28] MEDS: proCHLORperazine 5mg tablet PO SCH (07:00)
[2017-09-28] MEDS: pantoprazole 40mg Tablet.DR PO SCH (07:30)
[2017-09-28] MEDS: CefTRIAXone/D5W-Rocephin 1gm 50 ML IV SCH (07:51)
[2017-09-28] MEDS: azithromycin/NS 500mg/250ml 250 ML IV SCH (07:52)
[2017-09-28] MEDS: cyanocobalamin 500mcg tablet PO SCH (08:00)
[2017-09-28] MEDS: furosemide 40mg/4ml inj IV SCH (08:00)
[2017-09-28] MEDS: lactobacillus rhamnosus 10,000 MMU CELLS/CAPSULE PO SCH (08:00)
[2017-09-28] MEDS: docusate sod 100mg capsule PO SCH (08:00)
[2017-09-28] MEDS: atorvastatin 20mg tablet PO SCH (08:00)
[2017-09-28] MEDS: heparin, porcine 5000 units/ml vial SQ SCH (08:00)
[2017-09-28] MEDS: levoTHYROXINE 25mcg tablet PO SCH (08:00)
[2017-09-28] MEDS ORDERED: normal saline 1000ml 1,000 ML IV SCH (08:20)
[2017-09-28] MEDS: FLUSH 6 MG ICATH SCH (08:46)
[2017-09-28] MEDS: NORMAL SALINE ICATH SCH (08:46)
[2017-09-28] MEDS: normal saline 1000ml 1,000 ML IV SCH (08:46)
[2017-09-28] MEDS: TPA CATHFLO ICATH SCH (08:46)
[2017-09-28] MEDS: NUT.TX.GLUC.INTOLER,LAC-FR,REG (BOOST GLUCOSE CONTROL) 237 ML PO SCH (10:09)
[2017-09-28] MEDS ORDERED: midazolam 2 mg/2 ml injection IV PRN (11:30)
[2017-09-28] MEDS ORDERED: fentaNYL/PF 50MCG/1 ML 2ML syringe IV PRN (11:30)
[2017-09-28] MEDS ORDERED: heparin 1,000 UNITS/NS 500ml 500 ML ICATH ONE (11:30)
[2017-09-28] MEDS ORDERED: pantoprazole 40 MG vial IV SCH (11:32)
[2017-09-28] MEDS ORDERED: iohexol 300mg/ml 100ml inj. ONE ×2 (11:39→12:20)
[2017-09-28] MEDS ORDERED: heparin 1,000 UNITS/NS 500ml 500 ML ONE (12:17)
[2017-09-28] MEDS ORDERED: heparin 10,000 units/1 ML INJ IV ONE (13:00)
[2017-09-28] MEDS ORDERED: heparin 10,000 units/1 ML INJ IV PRN (13:00)
[2017-09-28] MEDS ORDERED: LIDOcaine 0.5% (5mg/ml) 50ml vial ONE (13:05)
[2017-09-28] MEDS ORDERED: heparin 1,000unit/ml 10ml vial 10 ML ONE ×2 (13:13→13:22)
[2017-09-28] MEDS ORDERED: methylPREDNISolone sod succ/PF 40mg inj. IV SCH (14:00)
[2017-09-28] MEDS ORDERED: NORepinephrine 8mg/ 250ml NS 250 ML IV SCH (15:06)
[2017-09-28] MEDS ORDERED: NORepinephrine 8mg/ 250ml NS 250 ML IV ONE (15:09)
[2017-09-28] MEDS ORDERED: vasopressin inj. 60 UNIT in normal saline 100ml IV soln 97 ML IV SCH (15:50)
[2017-09-28] MEDS ORDERED: vasoPRESSIN 20 units/ml inj. ONE ×2 (15:52→15:59)
[2017-09-29] MEDS ORDERED: levoTHYROXINE sod inj. 100mcg/5 ml vial IV SCH (13:00)
== END 2017-09-28 18:19 | disposition expired | DRG 853 ==
LOC: ER 13:54 → ED HOLD 16:22 → PCU 3S 21:30 → CICU 2S 09-27 15:30
PROVIDERS: ADMIT Family Medicine; ATTEND Internal Medicine Critical Care Medicine
PROC: 05CA3ZZ Extirpation of Matter from Left Brachial Vein, Percutaneous Approach (ICD-10-PCS; principal; 2017-09-28)
PROC: 3E04317 Introduction of Other Thrombolytic into Central Vein, Percutaneous Approach (ICD-10-PCS; 2017-09-28)
PROC: 5A09357 Assistance with Respiratory Ventilation, Less than 24 Consecutive Hours, Continuous Positive Airway Pressure (ICD-10-PCS; 2017-09-28)
PROC: 02H633Z Insertion of Infusion Device into Right Atrium, Percutaneous Approach (ICD-10-PCS; 2017-09-28)
PROC: B244ZZZ Ultrasonography of Right Heart (ICD-10-PCS; 2017-09-28)
DX: A41.9 Sepsis, unspecified organism (principal); E43 Unspecified severe protein-calorie malnutrition; J96.91 Respiratory failure, unspecified with hypoxia; J18.9 Pneumonia, unspecified organism; I80.209 Phlebitis and thrombophlebitis of unspecified deep vessels of unspecified lower extremity; D69.6 Thrombocytopenia, unspecified; E11.22 Type 2 diabetes mellitus with diabetic chronic kidney disease; N17.9 Acute kidney failure, unspecified; I13.0 Hypertensive heart and chronic kidney disease with heart failure and stage 1 through stage 4 chronic kidney disease, or unspecified chronic kidney disease; I82.622 Acute embolism and thrombosis of deep veins of left upper extremity; J44.0 Chronic obstructive pulmonary disease with (acute) lower respiratory infection; Z68.1 Body mass index [BMI] 19.9 or less, adult; J44.1 Chronic obstructive pulmonary disease with (acute) exacerbation; E87.5 Hyperkalemia; K59.09 Other constipation; I50.9 Heart failure, unspecified; Z96.649 Presence of unspecified artificial hip joint; E03.9 Hypothyroidism, unspecified; N18.9 Chronic kidney disease, unspecified; E78.00 Pure hypercholesterolemia, unspecified; M19.90 Unspecified osteoarthritis, unspecified site; Z66 Do not resuscitate; Z87.891 Personal history of nicotine dependence; Z93.3 Colostomy status; Z99.81 Dependence on supplemental oxygen; Z88.1 Allergy status to other antibiotic agents; Z88.5 Allergy status to narcotic agent; Z88.8 Allergy status to other drugs, medicaments and biological substances; Z79.899 Other long term (current) drug therapy; Z79.4 Long term (current) use of insulin
CPT/HCPCS: 36415; 36556; 36600; 37212; 37214; 71045; 76937; 77001; 80053; 81001; 82550; 82803; 82948; 83605; 83690; 83735; 83880; 84100; 84145; 84484; 85018; 85025; 85027; 85384; 85610; 85730; 86140; 87040; 87070; 87077; 87088; 93005; 93931; 93971; 94640; 94660; 94760; 99152; 99153; A4421; A4620; A6213; A6253; A6449; C1751; C1758; C1769; C1894; J0456; J0696; J1170; J1644; J1815; J1940; J2001; J2250; J2270; J2405; J2543; J2765; J2930; J2997; J3010; J3490; J7030; Q0164; Q9967